=== PATIENT | male | born 1995 | race Caucasian/White ===

== ENCOUNTER 2022-09-27 00:17 | Emergency (ER) | payer BC ==
[~2022-09-27] VITALS: Ht 180.3 cm; Wt 84.9 kg
[2022-09-27 03:30] VITALS: BP 131/69
[2022-09-27] MEDS ORDERED: BACITRACIN ZINC OINT UDPKT TOP ONE (04:30)
[2022-09-27] MEDS ORDERED: LIDOCAINE HCL/PF 1% 10 MG/ML 5ML VIAL INFIL ONE (04:30)
[2022-09-27] MEDS ORDERED: IBUP-2029 PO (05:16)
== END 2022-09-27 05:40 | disposition home or self-care (01) ==
LOC: ER 00:17
DX: S61.022A Laceration with foreign body of left thumb without damage to nail, initial encounter (principal); M66.38 Spontaneous rupture of flexor tendons, other site; W25.XXXA Contact with sharp glass, initial encounter; Y93.89 Activity, other specified; Y92.9 Unspecified place or not applicable
CPT/HCPCS: 73130; 99283; J3490; Z7610